=== PATIENT | female | born 1975 | race Caucasian/White ===

== ENCOUNTER 2019-10-10 15:37 | Inpatient (IN) | payer MEDICAID ==
[~2019-10-10] VITALS: Ht 162.6 cm; Wt 133.7 kg
[2019-10-10 17:04] LABS: BASOPHILS % (AUTO) 0.6 % (0.0-2.0); EOSINOPHILS % (AUTO) 0.1 % (1.0-6.0); HEMATOCRIT 46.7 % (36-46); HEMOGLOBIN 14.8 g/dL (12.0-16.0); LYMPHOCYTES # (AUTO) 1.2 K/uL (1.0-4.8); LYMPHOCYTES % (AUTO) 27.4 % (22.0-44.0); MEAN CORPUSCULAR HGB CONC 31.6 G/dL (31.0-37.0); MEAN CORPUSCULAR VOLUME 82 fL (80-100); MONOCYTES # (AUTO) 0.4 K/uL (0.1-1.0); NEUTROPHILS # (AUTO) 2.7 K/uL (1.8-7.7); NEUTROPHILS % (AUTO) 61.9 % (40.0-70.0); PLATELET COUNT (AUTO) 228 K/uL (150-450); RED BLOOD CELL COUNT(AUTO) 5.69 MIL/uL (4.00-5.20); RED CELL DISTRIBUTION WIDTH 15.7 % (11.5-14.5)
[2019-10-10 17:15] LABS: ANION GAP 9 mmol/L (8-16); CALCIUM, TOTAL 8.8 mg/dL (8.8-10.5); CARBON DIOXIDE 26 mmol/L (22-29); CHLORIDE 102 mmol/L (98-107); CREATININE 0.61 mg/dL (0.60-1.30); GLOMERULAR FILTR. RATE CALC > 60 mL/min (>60); GLUCOSE,RANDOM 134 mg/dL (70-110); POTASSIUM 3.6 mmol/L (3.5-5.1); SODIUM SERUM 137 mmol/L (136-145); UREA NITROGEN, BLOOD 8 mg/dL (7-18)
[2019-10-10 17:17] LABS: AMPHET/METH SCREEN,URINE NEGATIVE (NEGATIVE); BARBITURATE SCREEN, URINE NEGATIVE (NEGATIVE); BENZODIAZEPINES SCREEN,URINE NEGATIVE (NEGATIVE); CANNABINOID SCREEN,URINE NEGATIVE (NEGATIVE); COCAINE SCREEN,URINE NEGATIVE (NEGATIVE); METHADONE SCREEN, URINE NEGATIVE (NEGATIVE); OPIATE SCREEN,URINE NEGATIVE (NEGATIVE)
[2019-10-10 17:18] LABS: APPEARANCE,URINE CLOUDY (CLEAR); BILIRUBIN,URINE NEGATIVE (NEGATIVE); GLUCOSE, URINE (UA) NEGATIVE (NEGATIVE); KETONES,URINE NEGATIVE (NEGATIVE); LEUKOCYTE ESTERASE ,URINE NEGATIVE (NEGATIVE); NITRATE,URINE NEGATIVE (NEGATIVE); OCCULT BLOOD,URINE NEGATIVE (NEGATIVE); PH,URINE 6.5 (5.0-8.0); PROTEIN,URINE NEGATIVE (NEGATIVE); UROBILINOGEN,URINE 0.2 mg/dL (<=1.0)
[2019-10-10 17:21] LABS: PHENCYCLIDINE SCREEN,URINE NEGATIVE (NEGATIVE)
[2019-10-10 17:23] LABS: LACTIC ACID 1.1 mmol/L (0.4-2.0)
[2019-10-10 17:27] LABS: INFLUENZA TYPE A NEGATIVE FOR TYPE A (NEGATIVE); INFLUENZA TYPE B NEGATIVE FOR TYPE B (NEGATIVE)
[2019-10-10 17:40] LABS: B-TYPE NATRIURETIC PEPTIDE < 5 pg/mL (0-100)
[2019-10-10 17:41] LABS: ALANINE AMINOTRANSFERASE 59 U/L (12-78); ALBUMIN 3.7 g/dL (3.4-5.0); ALKALINE PHOSPHATASE 104 U/L (46-116); ASPARTATE AMINOTRANSFERASE 34 U/L (15-37); BILIRUBIN,TOTAL 0.4 mg/dL (0.1-1.0); CREATINE KINASE, TOTAL ONLY 100 U/L (26-192); HCG,QUANTITATIVE 1 mIU/mL (0-6); LACTATE DEHYDROGENASE 220 U/L (81-234); LIPASE 87 U/L (73-393); TOTAL PROTEIN, SERUM 8.7 g/dL (6.4-8.2)
[2019-10-10 18:15] LABS: BACTERIA,URINE Few /HPF (None Seen); RBC,URINE None Seen /HPF (0-2); SQUAMOUS EPITHELIAL CELL,UR Moderate /LPF (None Seen); WBC,URINE 0-2 /HPF (0-5)
[2019-10-10] MEDS ORDERED: 0.9% SODIUM CHLORIDE 10 ML SYRINGE IVP PRN (20:45)
[2019-10-10] MEDS ORDERED: ONDANSETRON HCL 4 MG/2 ML VIAL IVP PRN (20:45)
[2019-10-10] MEDS ORDERED: ACETAMINOPHEN 325 MG TABLET PO PRN ×2 (20:45)
[2019-10-10] MEDS ORDERED: MAGNESIUM HYDROXIDE SUSPENSION 30 ML UDCUP PO PRN (20:45)
[2019-10-10] MEDS: AZITHROMYCIN 500 MG/NS 250 ML IV SCH (20:52)
[2019-10-10] MEDS: ZINC GLUCONATE 50 MG TABLET PO SCH (21:08)
[2019-10-10] MEDS: HYDROXYCHLOROQUINE SULFATE 200 MG TABLET PO SCH (21:08)
[2019-10-11 01:33] VITALS: BP 116/80
[2019-10-11] MEDS ORDERED: INFLUENZA VIRUS VACCINE QVS 2019-20 (3YR+)/PF 60 MCG/0.5 ML SYRINGE IM ONE (01:45)
[2019-10-11 04:58] VITALS: BP 116/80
[2019-10-11 08:35] VITALS: BP 120/71
[2019-10-11] MEDS: ZINC GLUCONATE 50 MG TABLET PO SCH ×2 (09:02→21:03)
[2019-10-11] MEDS: FAMOTIDINE 20 MG TABLET PO SCH (09:02)
[2019-10-11] MEDS: HYDROXYCHLOROQUINE SULFATE 200 MG TABLET PO SCH ×2 (09:02→21:03)
[2019-10-11 10:58] VITALS: BP 142/79
[2019-10-11 15:54] VITALS: BP 139/88
[2019-10-11] MEDS ORDERED: SODIUM CHLORIDE 0.9% 250 ML IV ONE (21:00)
[2019-10-11] MEDS: AZITHROMYCIN 500 MG/NS 250 ML IV SCH (21:02)
[2019-10-12 01:06] VITALS: BP 133/84
[2019-10-12 04:30] VITALS: BP 144/78
[2019-10-12 08:43] VITALS: BP 119/76
[2019-10-12] MEDS: FAMOTIDINE 20 MG TABLET PO SCH (09:05)
[2019-10-12] MEDS: HYDROXYCHLOROQUINE SULFATE 200 MG TABLET PO SCH ×2 (09:06→20:45)
[2019-10-12] MEDS: ZINC GLUCONATE 50 MG TABLET PO SCH ×2 (09:06→20:45)
[2019-10-12 09:22] LABS: BASOPHILS % (AUTO) 0.8 % (0.0-2.0); EOSINOPHILS % (AUTO) 1.7 % (1.0-6.0); HEMATOCRIT 44.6 % (36-46); HEMOGLOBIN 14.2 g/dL (12.0-16.0); LYMPHOCYTES # (AUTO) 1.5 K/uL (1.0-4.8); LYMPHOCYTES % (AUTO) 29.4 % (22.0-44.0); MEAN CORPUSCULAR HEMOGLOBIN 26.3 pg (26.0-34.0); MEAN CORPUSCULAR HGB CONC 31.9 G/dL (31.0-37.0); MEAN CORPUSCULAR VOLUME 83 fL (80-100); MONOCYTES # (AUTO) 0.5 K/uL (0.1-1.0); MONOCYTES % (AUTO) 10.7 % (2.0-9.0); NEUTROPHILS # (AUTO) 2.8 K/uL (1.8-7.7); NEUTROPHILS % (AUTO) 57.4 % (40.0-70.0); PLATELET COUNT (AUTO) 273 K/uL (150-450); RED BLOOD CELL COUNT(AUTO) 5.41 MIL/uL (4.00-5.20); RED CELL DISTRIBUTION WIDTH 15.8 % (11.5-14.5)
[2019-10-12 10:06] LABS: ALANINE AMINOTRANSFERASE 59 U/L (12-78); ALBUMIN 3.5 g/dL (3.4-5.0); ALKALINE PHOSPHATASE 100 U/L (46-116); ANION GAP 10 mmol/L (8-16); ASPARTATE AMINOTRANSFERASE 33 U/L (15-37); BILIRUBIN,TOTAL 0.4 mg/dL (0.1-1.0); C-REACTIVE PROTEIN QUANT 2.05 mg/dL (0.00-0.30); CALCIUM, TOTAL 8.7 mg/dL (8.8-10.5); CARBON DIOXIDE 25 mmol/L (22-29); CHLORIDE 104 mmol/L (98-107); CREATINE KINASE, TOTAL ONLY 102 U/L (26-192); CREATININE 0.64 mg/dL (0.60-1.30); FERRITIN 170 ng/mL (8-252); GLOMERULAR FILTR. RATE CALC > 60 mL/min (>60); GLUCOSE,RANDOM 149 mg/dL (70-110); POTASSIUM 3.7 mmol/L (3.5-5.1); SODIUM SERUM 139 mmol/L (136-145); TOTAL PROTEIN, SERUM 8.4 g/dL (6.4-8.2); UREA NITROGEN, BLOOD 8 mg/dL (7-18)
[2019-10-12 10:11] LABS: D-DIMER 0.55 mg/L FEU (0.00-0.50)
[2019-10-12 10:18] LABS: PROTHROMBIN TIME 10.5 SEC (9.4-11.6)
[2019-10-12 11:56] VITALS: BP 140/93
[2019-10-12 15:56] VITALS: BP 105/80
[2019-10-12 20:00] VITALS: BP 130/76
[2019-10-12] MEDS: AZITHROMYCIN 500 MG/NS 250 ML IV SCH (20:45)
[2019-10-13 00:52] VITALS: BP 129/70
[2019-10-13] MEDS: HYDROXYCHLOROQUINE SULFATE 200 MG TABLET PO SCH ×2 (08:30→20:33)
[2019-10-13] MEDS: ZINC GLUCONATE 50 MG TABLET PO SCH ×2 (08:31→20:33)
[2019-10-13] MEDS: FAMOTIDINE 20 MG TABLET PO SCH (08:31)
[2019-10-13 08:45] VITALS: BP 133/84
[2019-10-13 12:32] VITALS: BP 130/73
[2019-10-13 17:17] VITALS: BP 140/78
[2019-10-13 20:00] VITALS: BP 135/65
[2019-10-13] MEDS: AZITHROMYCIN 500 MG/NS 250 ML IV SCH (20:33)
[2019-10-14] VITALS: BP 111/72
[2019-10-14 04:00] VITALS: BP 117/69
[2019-10-14] MEDS: ZINC GLUCONATE 50 MG TABLET PO SCH ×2 (08:52→21:39)
[2019-10-14] MEDS: FAMOTIDINE 20 MG TABLET PO SCH (08:52)
[2019-10-14] MEDS: HYDROXYCHLOROQUINE SULFATE 200 MG TABLET PO SCH ×2 (08:52→21:39)
[2019-10-14 09:07] VITALS: BP 111/63
[2019-10-14 12:30] VITALS: BP 121/70
[2019-10-14 16:45] VITALS: BP 117/62
[2019-10-14] MEDS: AZITHROMYCIN 500 MG/NS 250 ML IV SCH (21:39)
[2019-10-15] MEDS ORDERED: SODIUM CHLORIDE 0.9% 250 ML IV ONE (00:22)
[2019-10-15 00:37] VITALS: BP_SYST 77
[2019-10-15 08:00] VITALS: BP 129/80
[2019-10-15] MEDS: FAMOTIDINE 20 MG TABLET PO SCH (08:33)
[2019-10-15] MEDS: HYDROXYCHLOROQUINE SULFATE 200 MG TABLET PO SCH (08:33)
[2019-10-15] MEDS ORDERED: ZINC SULFATE 220 MG CAPSULE PO SCH (09:00)
[2019-10-15 12:00] VITALS: BP 122/84
== END 2019-10-15 13:50 | disposition home or self-care (01) | DRG 137 ==
LOC: EMS 15:47 → 5N 21:00
PROVIDERS: ADMIT Internal Medicine; ATTEND Internal Medicine
DX: U07.1 COVID-19 (principal); J12.89 Other viral pneumonia; E66.01 Morbid (severe) obesity due to excess calories; Z68.43 Body mass index [BMI] 50.0-59.9, adult; N63.0 Unspecified lump in unspecified breast; Z90.710 Acquired absence of both cervix and uterus; E86.0 Dehydration
CPT/HCPCS: 71250; 72192; 74150; 82728; 83605; 83615; 83735; 85379; 85384; 86140; 87040; 87635; 87804; 93005; J0456; J2405; J7050